=== PATIENT | female | born 1980 | race Caucasian/White ===

== ENCOUNTER 2017-07-22 08:20 | Observation (INO) | payer BC, OTHER ==
[~2017-07-22] VITALS: Ht 167.6 cm; Wt 85.5 kg
[2017-07-22] VITALS (7 sets, daily range): BP systolic 94–109; BP diastolic 59–69; PULSE 86–118; TEMP 36.4–36.9; O2SAT 96–100; Ht 167.6 cm; Wt 85.5 kg
[2017-07-22] MEDS ORDERED: MoRPHine SULFATE 10 MG/ML CARP/VIAL IV STA (08:35)
[2017-07-22] MEDS ORDERED: ONDANSETRON INJ 2 MG/ML 2 ML VIAL IV STA (08:35)
[2017-07-22] MEDS ORDERED: SODIUM CHLORIDE 0.9% 1000ML 1,000 ML IV STA ×2 (08:35→09:23)
[2017-07-22] MEDS ORDERED: OPTIRAY 320 IV PRN (08:45)
--- NOTE | 2017-07-22 08:56 | EMERGENCY ROOM VISIT NOTE ---
History First contact with patient: 08:27 Chief Complaint: ABDOMINAL PAIN Stated Complaint: STOMACH PAIN Nursing Triage Summary: Pt states her son woke her up in the middle of the night coughing and she got up to get him some medicine. When she laid back down she got "awful pains" in her stomach. States pain is in lower abd and comes up her sides. Hurts to touch and when she moves. Vomited this AM. Pt pale. Has appendix. Denies urinary symptoms or kidney stone history. History of Present Illness The patient is a 37 year old female who presents to the Emergency Room with complaints of abdominal pain that started suddenly at 3 AM this morning. She states that her pain started in her lower abdomen and has moved to the right side, is constant, worse with movement and lying down, better with sitting up, 8 /10. She did not take any medications for the pain. She has had associated nausea, vomiting, and diarrhea. She states she has vomited at least 10 times. She denies any blood in her vomit or stool. She has had some chills but does not believe she has had any fevers. She denies any recent antibiotics, the country travel, or unusual food or drink. She denies any headaches, neck pain, chest pain, shortness of breath, dizziness or syncope, back pain, dysuria or urinary frequency, hematuria, vaginal discharge or abnormal bleeding. Her last menstrual period was one month ago, and she states that she had tubal ligation 9 years ago after her last child was born. Review of Systems A complete 10 point review of systems was reviewed with the patient with pertinent positives and negatives as per history of present illness. All else were negative. Past Medical/Surgical History Medical Problems: (1) Hemoperitoneum (2) Ruptured right tubal ectopic causing hemoperitoneum Social History Smoking Status: Former Smoker Current/Historical Medications Scheduled Ibuprofen (Ibuprofen), 1 TAB PO Q6 Scheduled PRN Oxycodone/Acetaminophen 5MG/325MG (Percocet 5MG/325MG), 1 TABLET PO Q4H PRN for Pain Allergies Coded Allergies: No Known Allergies (Unverified , 07/22/17) Physical Exam Vital Signs Date Time Temp Pulse Resp B/P (MAP) Pulse Ox O2 Delivery O2 Flow Rate FiO2 07/22/17 13:20 98 20 109/87 98 Oxymask 8 07/22/17 13:10 90 14 116/75 98 Oxymask 8 07/22/17 13:03 36.5 99 16 122/83 97 Oxymask 8 07/22/17 10:22 133 20 111/73 97 Room Air 07/22/17 09:15 109 12 104/67 98 Room Air 07/22/17 09:07 100 07/22/17 08:22 36.3 130 18 117/79 98 Room Air Physical Exam CONSTITUTIONAL: No acute distress, but appears uncomfortable and in pain. Moderately dehydrated. Alert and oriented X 4 with normal affect. Tearful on exam. HEENT: Normocephalic, atraumatic. Pupils equal, round and reactive to light, EOMI. TMs normal. Pharynx normal. Dry mucous membranes. NECK: Supple, full active range of motion without discomfort. No cervical adenopathy. RESPIRATORY: Clear to auscultation bilaterally with no wheezing, crackles, rhonchi or stridor. Equal expansion bilaterally. CARDIOVASCULAR: Tachycardic. Regular rate and rhythm with no murmurs, rubs or gallops. Normal peripheral perfusion. No edema. GASTROINTESTINAL: Diffuse moderate tenderness throughout, most tender in the right lower quadrant with positive McBurney's tenderness. Positive Rovsing. Positive rebound and guarding on the right. Abdomen is soft and mildly distended. No palpable masses or HSM. Hypoactive bowel sounds present in all quadrants. MUSCULOSKELETAL: Full range of motion of all joints without discomfort. INTEGUMENTARY: No rash or other significant dermatologic conditions noted. NEUROLOGIC: Cranial nerves II-XII grossly intact. No focal neurologic deficits noted. Medical Decision & Procedures ER Provider Diagnostic Interpretation: ECTOPIC HISTORY: 37 years-old Female eval ectopic acute generalized pelvic pain with . History of prior tubal ligation. COMPARISON: None available TECHNIQUE: Multiple real-time sonographic images of the deep pelvic structures were obtained transabdominally and transvaginally assessing grayscale appearance, color and spectral flow FINDINGS: TRANSABDOMINAL: Anteflexed uterus measures 9.3 x 4.8 x 5.8 cm. Endometrium measures 1.1 cm. Right ovary measures 2.6 x 2.3 x 2.9 cm and demonstrates internal follicles with arterial inflow. Left ovary measures 1.8 x 1.7 x 1.7 cm with follicles and arterial inflow also noted. On image 32 of 76 image transabdominal images there is a complex collection adjacent to the right ovary which appears to extend towards left ovary measuring up to 7.5 x 5.3 cm. TRANSVAGINAL: Trace fluid within the endocervical canal. Nabothian cysts are present. Moderate complex free pelvic fluid. There is a complex right adnexal collection measuring up to 7.8 x 2.8 x 5.4 cm which extends over the fundal uterus. No extrauterine gestational sac identified. Study is limited secondary to patient condition. Directional Driller reports that the patient's nurse was there during the study and no more images were able to be obtained secondary to patient pain and condition. IMPRESSION: 1. Heterogeneous mixed echogenicity collection of the right adnexum extending over the fundal uterus measuring up to 7.8 cm suggests hemorrhage with associated moderate amount of complex free pelvic fluid, possibly secondary to ruptured ectopic gestation in the setting of positive qualitative beta hCG. CNC TECHNICIAN consultation recommended. 2. Mild fluid of the endocervical canal without definite intrauterine or extra uterine gestation identified. 3. No evidence of ovarian torsion. Laboratory Results 07/22/17 08:45 Test 07/22/17 08:45 07/22/17 08:51 07/22/17 09:05 Est Creatinine Clear Calc Drug Dose 96.1 ml/min Estimated GFR () 96.0 Estimated GFR (Non- 82.8 BUN/Creatinine Ratio 13.9 (10-20) Lactic Acid Level 2.1 mmol/L (0.4-2.0) Calcium Level 9.0 mg/dl (8.5-10.1) Total Bilirubin 0.4 mg/dl (0.2-1) Direct Bilirubin < 0.1 mg/dl (0-0.2) Aspartate Amino Transf (AST/SGOT) 11 U/L (15-37) Alanine Aminotransferase (ALT/SGPT) 17 U/L (12-78) Alkaline Phosphatase 78 U/L (45-117) Total Protein 7.4 gm/dl (6.4-8.2) Albumin 3.8 gm/dl (3.4-5.0) Lipase 93 U/L (73-393) Bedside Hemoglobin 11.9 g/dl (12.0-16.0) Bedside Hematocrit 35 % (37-47) Bedside Sodium 139 mEq/L (135-144) Bedside Potassium 3.9 mEq/L (3.3-5.0) Bedside Chloride 103 mEq/L (101-112) Bedside Total CO2 22 mEq/l (24-31) Anion Gap 19.0 mmol/L (16-25) Bedside Blood Urea Nitrogen 12 mg/dl (7-18) Bedside Creatinine 0.8 mg/dl (0.6-1.3) Bedside Glucose (other) 167 mg/dl (70-99) Bedside Ionized Calcium (Kulwant) 1.19 mmol/l (1.12-1.32) Urine Color YELLOW Urine Appearance TURBID (CLEAR) Urine pH 5.0 (4.5-7.5) Urine Specific [place] >= 1.030 (1.000-1.030) Urine Protein TRACE (NEG) Urine Glucose (UA) NEG (NEG) Urine Ketones 2+ (NEG) Urine Occult Blood NEG (NEG) Urine Nitrite NEG (NEG) Urine Bilirubin NEG (NEG) Urine Urobilinogen NEG (NEG) Urine Leukocyte Esterase NEG (NEG) Urine RBC 0-4 /hpf (0-4) Urine WBC 0 /hpf (0-5) Urine Epithelial Cells >30 /lpf (0-5) Urine Amorphous Sediment PRESENT (NONE PRSENT) Urine Bacteria NEG (NEG) Urine Test POS (NEG) 07/22/17 08:45 Test 07/22/17 08:45 07/22/17 08:51 07/22/17 09:05 Est Creatinine Clear Calc Drug Dose 96.1 ml/min Estimated GFR () 96.0 Estimated GFR (Non- 82.8 BUN/Creatinine Ratio 13.9 (10-20) Lactic Acid Level 2.1 mmol/L (0.4-2.0) Calcium Level 9.0 mg/dl (8.5-10.1) Total Bilirubin 0.4 mg/dl (0.2-1) Direct Bilirubin < 0.1 mg/dl (0-0.2) Aspartate Amino Transf (AST/SGOT) 11 U/L (15-37) Alanine Aminotransferase (ALT/SGPT) 17 U/L (12-78) Alkaline Phosphatase 78 U/L (45-117) Total Protein 7.4 gm/dl (6.4-8.2) Albumin 3.8 gm/dl (3.4-5.0) Lipase 93 U/L (73-393) Bedside Hemoglobin 11.9 g/dl (12.0-16.0) Bedside Hematocrit 35 % (37-47) Bedside Sodium 139 mEq/L (135-144) Bedside Potassium 3.9 mEq/L (3.3-5.0) Bedside Chloride 103 mEq/L (101-112) Bedside Total CO2 22 mEq/l (24-31) Anion Gap 19.0 mmol/L (16-25) Bedside Blood Urea Nitrogen 12 mg/dl (7-18) Bedside Creatinine 0.8 mg/dl (0.6-1.3) Bedside Glucose (other) 167 mg/dl (70-99) Bedside Ionized Calcium (Kulwant) 1.19 mmol/l (1.12-1.32) Urine Color YELLOW Urine Appearance TURBID (CLEAR) Urine pH 5.0 (4.5-7.5) Urine Specific [place] >= 1.030 (1.000-1.030) Urine Protein TRACE (NEG) Urine Glucose (UA) NEG (NEG) Urine Ketones 2+ (NEG) Urine Occult Blood NEG (NEG) Urine Nitrite NEG (NEG) Urine Bilirubin NEG (NEG) Urine Urobilinogen NEG (NEG) Urine Leukocyte Esterase NEG (NEG) Urine RBC 0-4 /hpf (0-4) Urine WBC 0 /hpf (0-5) Urine Epithelial Cells >30 /lpf (0-5) Urine Amorphous Sediment PRESENT (NONE PRSENT) Urine Bacteria NEG (NEG) Urine Test POS (NEG) Last 24 Hours Test 07/22/17 08:45 Blood Urea Nitrogen 12 mg/dl (7-18) Creatinine 0.90 mg/dl (0.60-1.20) White Blood Count 17.90 K/uL (4.8-10.8) Red Blood Count 4.13 M/uL (4.2-5.4) Hemoglobin 12.0 g/dL (12.0-16.0) Hematocrit 36.2 % (37-47) Mean Corpuscular Volume 87.7 fL (80-100) Mean Corpuscular Hemoglobin 29.1 pg (25-34) Mean Corpuscular Hemoglobin Concent 33.1 g/dl (32-36) Platelet Count 247 K/uL (130-400) Mean Platelet Volume 11.6 fL (7.4-10.4) Neutrophils (%) (Auto) 88.0 % Lymphocytes (%) (Auto) 8.5 % Monocytes (%) (Auto) 2.8 % Eosinophils (%) (Auto) 0.1 % Basophils (%) (Auto) 0.2 % Neutrophils # (Auto) 15.76 K/uL (1.4-6.5) Lymphocytes # (Auto) 1.52 K/uL (1.2-3.4) Monocytes # (Auto) 0.50 K/uL (0.11-0.59) Eosinophils # (Auto) 0.01 K/uL (0-0.5) Basophils # (Auto) 0.04 K/uL (0-0.2) Last 72 Hours Test 07/22/17 08:45 Alanine Aminotransferase (ALT/SGPT) 17 U/L Aspartate Amino Transf (AST/SGOT) 11 U/L Direct Bilirubin < 0.1 mg/dl White Blood Count 17.90 K/uL Red Blood Count 4.13 M/uL Hemoglobin 12.0 g/dL Hematocrit 36.2 % Mean Corpuscular Volume 87.7 fL Mean Corpuscular Hemoglobin 29.1 pg Mean Corpuscular Hemoglobin Concent 33.1 g/dl Platelet Count 247 K/uL Mean Platelet Volume 11.6 fL Neutrophils (%) (Auto) 88.0 % Lymphocytes (%) (Auto) 8.5 % Monocytes (%) (Auto) 2.8 % Eosinophils (%) (Auto) 0.1 % Basophils (%) (Auto) 0.2 % Neutrophils # (Auto) 15.76 K/uL Lymphocytes # (Auto) 1.52 K/uL Monocytes # (Auto) 0.50 K/uL Eosinophils # (Auto) 0.01 K/uL Basophils # (Auto) 0.04 K/uL Total Bilirubin 0.4 mg/dl Medications Administered Medications (Trade) Dose Ordered Sig/Becky Route Start Time Stop Time Status Last Admin Dose Admin Sodium Chloride 1,000 ml @ 999 mls/hr Q1H1M STAT IV 07/22/17 08:35 07/22/17 09:35 DC 07/22/17 09:04 999 MLS/HR Ondansetron HCl (Zofran Inj) 4 mg NOW STAT IV 07/22/17 08:35 07/22/17 08:37 DC 07/22/17 09:04 4 MG Morphine Sulfate (MoRPHine SULFATE INJ) 2 mg STK-MED ONCE .ROUTE 07/22/17 08:58 07/22/17 08:59 DC 07/22/17 09:04 2 MG Morphine Sulfate (MoRPHine SULFATE INJ) 4 mg STK-MED ONCE .ROUTE 07/22/17 08:58 07/22/17 08:59 DC 07/22/17 09:05 4 MG Sodium Chloride 1,000 ml @ 999 mls/hr Q1H1M STAT IV 07/22/17 09:23 07/22/17 10:23 DC 07/22/17 09:27 999 MLS/HR Morphine Sulfate (MoRPHine SULFATE INJ) 4 mg Q1H PRN IV 07/22/17 09:45 07/22/17 17:10 DC 07/22/17 10:23 4 MG Bupivacaine HCl (Marcaine 0.5% MPF Inj) 30 ml STK-MED ONCE .ROUTE 07/22/17 10:52 07/22/17 10:53 DC 07/22/17 12:54 12 ML Silver Nitrate/ Potassium Nitrate (Silver Nitrate Applicators) 4 appl STK-MED ONCE .ROUTE 07/22/17 12:52 07/22/17 12:53 DC 07/22/17 12:54 2 APPL Medical Decision CC: Patient presenting with complaint of abdominal pain, vomiting, diarrhea Interpretation of Labs: Leukocytosis with left shift, no significant anemia, no significant loculated abnormalities, normal renal function, normal liver enzymes. Elevated lactic acid. UA negative for infection. Urine is POSITIVE. Differential Diagnosis: Includes, but not limited to appendicitis, ureteral stone, UTI, pyelonephritis, gastroenteritis, gastritis, infectious colitis, cholecystitis, cholelithiasis, pancreatitis, ectopic , bowel perforation, small bowel obstruction, among others. Medication Reconciliation: I attest that I have personally reviewed the patient' s current medication list. Vital signs review: I reviewed the patient's vital signs and interpret them as follows: T: Afebrile; BP: Normotensive; HR: Tachycardic; RR: Within normal limits; Pulse Ox: Within normal limits. Blood pressure screening: The patient was found to have normal blood pressure on screening and does not require follow-up for repeat blood pressure check. Summary: Patient was evaluated at bedside, history and physical exam performed. Patient is alert and oriented, no acute distress, but appears very uncomfortable and in pain, tearful on exam. The abdomen is tender diffusely, most tender in the lower quadrants and point tender over the right lower quadrant. Positive McBurney's. Positive Rovsing. Positive rebound tenderness throughout the entire abdomen. Patient appears moderately dehydrated and is tachycardic in the 130s. She is afebrile. Orders were placed at bedside for labs, UA and urine , IV fluids for hydration, IV morphine and Zofran for pain and nausea, CT abdomen/pelvis with IV contrast to evaluate for appendicitis and other intra-abdominal etiology. Patient discussed with Dr. Wilkins, who agrees with my assessment and plan. Labs reviewed as above, notable for leukocytosis and elevated lactic acid. Nursing staff called to notify me the patient's test is POSITIVE. Patient was reassessed, she is still in significant pain. Bedside ultrasound was performed, no discernible intrauterine . FAST exam performed, questionable free fluid in the pelvis and left upper quadrant. CT scan was canceled, pelvic ultrasound ordered to evaluate for ectopic . I did evaluate the patient during her formal ultrasound, images concerning for a possible ruptured ectopic by my evaluation. I called and spoke with Dr. Verma, OB, due to concerns for ruptured ectopic . She agreed to evaluate the patient and recommended notifying the OR for possible urgent surgery. This was done. Patient reassessed multiple times throughout ED stay, she remains in significant pain though this is somewhat improved with morphine. She continues to be tachycardic, but she has not been hypotensive. She is not significantly anemic on blood work. Awaiting beta Quant. Dr. Verma at bedside to evaluate the patient, she is taking her directly to the OR. Patient was stable at this time. Impression Primary Impression: Ruptured ectopic Departure Information Dispostion Being Evaluated By Surgeon Condition FAIR Prescriptions Ibuprofen (Ibuprofen) 600 Mg Tab 1 TAB PO Q6 for Pain, #30 TAB Prov: Dolores Verma M.D. 07/23/17 Oxycodone/Acetaminophen 5MG/325MG (PERCOCET 5MG/325MG) Tab 1 TABLET PO Q4H Y for Pain, #20 TAB Prov: Dolores Verma M.D. 07/23/17 Referrals No Doctor, Assigned (PCP) Forms Call Back Authorization, HOME CARE DOCUMENTATION FORM, IMPORTANT VISIT INFORMATION Patient Instructions My [facility]
[2017-07-22] MEDS ORDERED: MoRPHine SULFATE 2 MG/ML CARP ONE (08:58)
[2017-07-22] MEDS ORDERED: MoRPHine SULFATE 4 MG/ML 1 ML CARP\\VIAL ONE (08:58)
[2017-07-22 09:03] LABS: BASO % 0.2 %; BASO ABS # 0.04 K/uL (0-0.2); COMPLETE YES; EOS % 0.1 %; HEMATOCRIT 36.2 % (37-47); IG% 0.4 %; LYMPH % 8.5 %; LYMPH ABS # 1.52 K/uL (1.2-3.4); MEAN CELL VOLUME 87.7 fL (80-100); MEAN CORPUSCULAR HEMOGLOBIN 29.1 pg (25-34); MEAN CORPUSCULAR HGB CONC 33.1 g/dl (32-36); MEAN PLATELET VOLUME 11.6 fL (7.4-10.4); MONO % 2.8 %; PLATELET COUNT 247 K/uL (130-400); RED BLOOD COUNT 4.13 M/uL (4.2-5.4)
[2017-07-22 09:04] LABS: ISTAT CREATININE 0.8 mg/dl (0.6-1.3); ISTAT HEMOGLOBIN 11.9 g/dl (12.0-16.0); ISTAT IONIZED CALCIUM 1.19 mmol/l (1.12-1.32)
[2017-07-22 09:24] LABS: ALT/SGPT 17 U/L (12-78); BLOOD UREA NITROGEN 12 mg/dl (7-18); BUN/CREATININE RATIO 13.9 (10-20); CARBON DIOXIDE 23 mmol/L (21-32); CHLORIDE 106 mmol/L (98-107); GLUCOSE 158 mg/dl (70-99); POTASSIUM 3.9 mmol/L (3.5-5.1); SODIUM 137 mmol/L (136-145)
[2017-07-22 09:29] LABS: ALKALINE PHOSPHATASE 78 U/L (45-117); AST/SGOT 11 U/L (15-37)
[2017-07-22 09:37] LABS: MANUAL MICROSCOPIC REQUIRED? YES; REVIEW REQ? NO; URINE APPEARANCE TURBID (CLEAR); URINE BILIRUBIN NEG (NEG); URINE COLOR YELLOW; URINE NITRITE NEG (NEG); URINE RBC 0-4 /hpf (0-4); URINE SPECIFIC GRAVITY >= 1.030 (1.000-1.030); UROBILINOGEN NEG (NEG)
[2017-07-22 09:38] LABS: URINE WBC 0 /hpf (0-5)
[2017-07-22 09:39] LABS: URINE AMORPHOUS SEDIMENT PRESENT (NONE PRSENT); URINE BACTERIA NEG (NEG)
[2017-07-22] MEDS ORDERED: MoRPHine SULFATE 4 MG/ML 1 ML CARP\\VIAL IV PRN (09:45)
--- NOTE | 2017-07-22 10:41 | DIAGNOSTIC IMAGING REPORT ---
ECTOPIC HISTORY: 37 years-old Female eval ectopic acute generalized pelvic pain with . History of prior tubal ligation. COMPARISON: None available TECHNIQUE: Multiple real-time sonographic images of the deep pelvic structures were obtained transabdominally and transvaginally assessing grayscale appearance, color and spectral flow FINDINGS: TRANSABDOMINAL: Anteflexed uterus measures 9.3 x 4.8 x 5.8 cm. Endometrium measures 1.1 cm. Right ovary measures 2.6 x 2.3 x 2.9 cm and demonstrates internal follicles with arterial inflow. Left ovary measures 1.8 x 1.7 x 1.7 cm with follicles and arterial inflow also noted. On image 32 of 76 image transabdominal images there is a complex collection adjacent to the right ovary which appears to extend towards left ovary measuring up to 7.5 x 5.3 cm. TRANSVAGINAL: Trace fluid within the endocervical canal. Nabothian cysts are present. Moderate complex free pelvic fluid. There is a complex right adnexal collection measuring up to 7.8 x 2.8 x 5.4 cm which extends over the fundal uterus. No extrauterine gestational sac identified. Study is limited secondary to patient condition. Plaster Mixer reports that the patient's nurse was there during the study and no more images were able to be obtained secondary to patient pain and condition. IMPRESSION: 1. Heterogeneous mixed echogenicity collection of the right adnexum extending over the fundal uterus measuring up to 7.8 cm suggests hemorrhage with associated moderate amount of complex free pelvic fluid, possibly secondary to ruptured ectopic gestation in the setting of positive qualitative beta hCG. ELEVATOR MECHANIC APPRENTICE consultation recommended. 2. Mild fluid of the endocervical canal without definite intrauterine or extra uterine gestation identified. 3. No evidence of ovarian torsion. The above report was generated using voice recognition software. It may contain grammatical, syntax or spelling errors. Electronically signed by: Kevin Webb M.D. 07/22/2017 10:40 AM Dictated Date/Time: 07/22/2017 10:30 AM
[2017-07-22] MEDS ORDERED: LIDOCAINE HCL 2% 2 ML VIAL (20MG/ML) ONE (10:44)
[2017-07-22] MEDS ORDERED: NEOSTIGMINE METHYLSULFATE 5 MG/5 ML SYR ONE (10:44)
[2017-07-22] MEDS ORDERED: MIDAZOLAM HCL 1 MG/ML 2ML VIAL ONE (10:44)
[2017-07-22] MEDS ORDERED: GLYCOPYRROLATE INJ 0.2 MG/ML VIAL ONE ×2 (10:44→12:39)
[2017-07-22] MEDS ORDERED: ONDANSETRON INJ 2 MG/ML 2 ML VIAL ONE ×2 (10:44→12:39)
[2017-07-22] MEDS ORDERED: FENTANYL CITRATE INJ 50 MCG/1 ML 2 ML VIAL ONE ×2 (10:44→12:39)
[2017-07-22] MEDS ORDERED: PROPOFOL IV EMULSION 10 MG/ML 20 ML VIAL IV ONE (10:44)
[2017-07-22] MEDS ORDERED: DEXAMETHASONE SOD INJ 4 MG/ML VIAL ONE (10:44)
[2017-07-22] MEDS ORDERED: BUPIVACAINE 0.5 % 5 MG/1 ML MPF 30ML VIAL ONE (10:52)
--- NOTE | 2017-07-22 11:02 | History and Physical ---
History & Physical Date Jul 22, 2017. Chief Complaint acute abdominal pain History of Present Illness The patient is a 37 year old female with LPSC tubal after her last child 9 years ago. Was in her usual state of health and had sudden onset of abdominal pain last night, excrutiating, constant, could not stand up straight. Had to stay in bed wrapped in a ball. Notes associated with feeling hot, n/v , diarrhea. Presented to the ED and eval by PA. +UPT. quant still pending. Very tender abdomen, tachycardia. Could not tolerate US well as having so much pain. Patient notes she gets regular typesetters printer care in [place]. Just had annual exam last month and all well. Has normal regular periods every 28-30 days. LMP 06/20 and per patient report was normal. No hx of stds. All deliveries were vaginal. Hx of one termination. Hx of cervical dysplasia. No other pertinent typesetters printer hx. Past Medical/Surgical History Patient denies significant medical hx. psxhx--lpsc tl, oral Additional History Hepatic Disease: No Endocrine Disorder: No Kidney Disease: No Hypertension: No Heart Disease: No Bleeding Tendencies: No Infectious Diseases: No LMP: 06/20/17 Allergies Coded Allergies: No Known Allergies (Unverified , 07/22/17) Home Medications No Active Prescriptions or Reported Meds Physical Examination Skin: warm/dry Respiratory/Chest: lungs clear Cardiovascular: regular rate, rhythm Abdomen / GI: + pertinent finding (abdomen appears slightly distended, tender to generalized palpation with guarding and probable rebound) Extremities: normal inspection Addiitonal Comments: h/h US--uterus nl, lining 1.1, no sac, left ov nl, r ov nl, complex mass/fluid collection measuring 7.5x5.3 cm adjacent to the right ovary, moderate complex fluid in culdesac. Diagnosis Probable ruptured ectopic Plan of Treatment Given the situation of TL and + test (quant pending), plan to take to the or for dx lpsc, possible right salpingectomy or possibly right salpingoophrectomy. Risks of surgery discussed with the patient including bleeding, transfusion, infection, damage to surrounding structures with need for further surgery or hospitalization, open procedure, heart attack , blood clot, stoke ,. Consent reviewed and signed and questions answered. Plan to proceed urgently to the OR.
[2017-07-22] MEDS ORDERED: ATROPINE SULFATE 0.1 MG/ML 5ML SYR IV PRN (11:15)
[2017-07-22] MEDS ORDERED: PHENYLEPHRINE 100MCG/ML 5ML SYR IV PRN (11:15)
[2017-07-22] MEDS ORDERED: EpHEDrine SULFATE INJ 50 MG/ML AMP IV PRN (11:15)
[2017-07-22] MEDS ORDERED: ONDANSETRON INJ 2 MG/ML 2 ML VIAL IV PRN ×2 (11:15→13:30)
[2017-07-22] MEDS ORDERED: HYDROmorphone INJ 2 MG/ML SYR/VIAL IV PRN (11:15)
[2017-07-22] MEDS ORDERED: KETOROLAC TROMETHAMINE 30 MG/ML VIAL ONE (12:38)
[2017-07-22] MEDS ORDERED: ROCURONIUM BROMIDE 10 MG/ML 5 ML VIAL IV ONE (12:39)
[2017-07-22] MEDS ORDERED: SUCCINYLCHOLINE CHLORIDE 20 MG/ML 10 ML VIAL IV ONE (12:44)
[2017-07-22] MEDS ORDERED: SILVER NITR/POTASSIUM NITRATE APPLICATOR ONE (12:52)
--- NOTE | 2017-07-22 13:28 | [facility] Post Operative Brief Note ---
Immediate Operative Summary Operative Date Jul 22, 2017. Pre-Operative Diagnosis suspected right fallopian tube ruptured ectopic Post-Operative Diagnosis Same as preop Procedure(s) Performed Diagnostic Laparoscopy Bilateral Salpigectomy Surgeon Dr. Verma Education Administrative Assistant Surgeon(s) MS [id number] Estimated Blood Loss 0 ml for case but hemoperitoneum in abdomen was approximatly 900 ml Findings nl uterus, nl tubes, large amount of blood and clot in the abdomen. left tube appears normal. no obvious area of interruption. Ectopic with rupture in the initial portion of the FT. Appendix visualized and normal. Fluids (cc crystalloids) 2500cc Specimens A. Right Fallopain Tube Ectopic B. Left Fallopian Tube Drains none Anesthesia gett Complication(s) None Disposition Recovery Room / PACU
[2017-07-22] MEDS ORDERED: ZOLPIDEM TARTRATE 5 MG TAB PO PRN (13:30)
[2017-07-22] MEDS ORDERED: ACETAMINOPHEN 325 MG TAB PO PRN (13:30)
[2017-07-22] MEDS ORDERED: LORAZEPAM 0.5 MG TAB PO PRN (13:30)
[2017-07-22] MEDS ORDERED: KETOROLAC TROMETHAMINE 30 MG/ML VIAL IV PRN (13:30)
[2017-07-22] MEDS ORDERED: MEPERIDINE HCL 50 MG/ML CARP IM PRN (13:30)
--- NOTE | 2017-07-22 13:33 | Anesthesiology Progress Note ---
Anesthesia Post Op Note Date & Time Jul 22, 2017 at 13:32 Vital Signs Pain Intensity: 3 Vital Signs Past 12 Hours Date Time Temp Pulse Resp B/P (MAP) Pulse Ox O2 Delivery O2 Flow Rate FiO2 07/22/17 13:30 95 18 103/56 93 Room Air 07/22/17 13:20 98 20 109/87 98 Oxymask 8 07/22/17 13:10 90 14 116/75 98 Oxymask 8 07/22/17 13:03 36.5 99 16 122/83 97 Oxymask 8 07/22/17 10:22 133 20 111/73 97 Room Air 07/22/17 09:15 109 12 104/67 98 Room Air 07/22/17 09:07 100 07/22/17 08:22 36.3 130 18 117/79 98 Room Air Notes Mental Status: alert / awake / arousable, participated in evaluation Pt Amnestic to Procedure: Yes Nausea / Vomiting: adequately controlled Pain: adequately controlled Airway Patency, RR, SpO2: stable & adequate BP & HR: stable & adequate Hydration State: stable & adequate Anesthetic Complications: no major complications apparent
[2017-07-22] MEDS ORDERED: IV FLUIDS COMPLETED PRN (14:00)
[2017-07-22 14:10] LABS: HEMATOCRIT 27.5 % (37-47)
[2017-07-22] MEDS ORDERED: LACTATED RINGER'S 1000ML 1,000 ML IV SCH (15:00)
[2017-07-22] MEDS ORDERED: IBUPROFEN 600 MG TAB PO PRN (17:00)
[2017-07-22] MEDS ORDERED: OXYCODONE/ACETAMINOPHEN 5-325 TAB PO PRN (17:00)
[2017-07-22] MEDS ORDERED: MEPERIDINE HCL 50 MG/ML CARP IV PRN (17:00)
--- NOTE | 2017-07-22 19:32 | OPERATIVE REPORT ---
DATE OF OPERATION: 07/22/2017 PREOPERATIVE DIAGNOSES: Suspected right ectopic and hemoperitoneum. POSTOPERATIVE DIAGNOSIS: Ruptured right ectopic with hemoperitoneum. PROCEDURE: Diagnostic laparotomy with bilateral salpingectomy. SURGEON: Dolores Verma MD. TROUBLE DISPATCHER: MARGY Graff. ANESTHESIA: General per endotracheal tube. ESTIMATED BLOOD LOSS: No real loss of blood for the procedure but there was at least 900 mL of hemoperitoneum drained from the abdomen. FLUIDS: 2500 mL URINE OUTPUT: 175 mL of very cloudy yellow urine drained from the bladder at the end of the procedure. INDICATIONS: The patient is a 37-year-old white female, 6, para 4-0-1-4, who had a tubal ligation after the delivery of her fourth child, sounded laparoscopic. The patient presented to the Emergency Department with acute onset of pain at 3:00 a.m. She was found to have a positive test. Her quant was 2800 and ultrasound showed a 7.5 x 5.3 complex mass and complex fluid within the pelvis. FINDINGS: Uterus and ovaries normal bilaterally. Left tube was normal appearing. There was not an obvious area of evidence of interruption of the tube. Right tube showed an ectopic just into the beginning of the tube, it was ruptured, there was clot in the area. Again, no obvious area of tubal interruption but questionable interruption right just lateral to both of the cornua. Appendix was visualized and was normal. There was approximately 900 mL of hemoperitoneum. COMPLICATIONS: None. DRAINS: None. DISPOSITION: To recovery room in stable condition. DESCRIPTION OF PROCEDURE: The patient was taken to the operating room where she was identified verbally and by bracelet. She was placed in dorsal supine position where general anesthesia was induced without difficulty. She was then placed in dorsal lithotomy position in [facility]. Her arms were carefully tucked and draped at her side. Her chest was protected and restrained. She was prepped and draped in normal sterile fashion. Timeout was held identifying correct patient, procedure and positioning. No preoperative antibiotics were required. Attention was turned to the perineum where a Waters catheter was placed. A speculum was placed. The anterior lip of the cervix was grasped with a single tooth tenaculum. A [email or web address] uterine manipulator was placed into the cervix to serve as means of manipulation and the speculum was removed. Attention was then turned to the abdomen where an infraumbilical incision was made with a knife. Veress needle placed through this x3 with opening pressure of 8 mmHg. Because I was not sure if we were preperitoneal, I converted to open laparoscopic procedure. The infraumbilical incision was increased with the knife. The fascia was grasped bilaterally and entered with scissors. It was sutured with 0 Vicryl. The peritoneum was then identified and entered sharply with scissors. I had gotten some air into the abdomen. A Julienne trocar was then placed into the abdomen and the camera was placed through this, immediate hemoperitoneum was noted. As much of this as could be removed with suction was done after a 5 mm trocar was placed in the left lower quadrant under direct visualization. The patient was then placed into Trendelenburg position and a ruptured ectopic was noted in the right tube, just lateral to the cornua of the uterus. I decided to remove this entire tube. There was no obvious evidence of tubal interruption; however, there was a divoting just beyond the ectopic , between the uterus and the ectopic that could have potentially been a separation. The left tube looked very similar. No obvious evidence of tubal interruption but a little notching just lateral to the cornual section of the tube. Because the patient obviously desired no further children, as she had had a previous ectopic , I decided it was in the patient's best interest, since I could not obviously see tubal interruption, to remove the left tube as well. So a 10 mm trocar was placed under direct visualization in the right lower quadrant and this was used with a large 10 mm suction device to remove as much clot as we could. Attention was then turned to the right tube where it was grasped with a blunt probe, and using the Harmonic scalpel, it was removed in its entirety. I do believe I did obtain and remove all of the ectopic . This tubal segment was placed into a laparoscopic bag and was pulled through the 10 mm trocar site. Then, in a similar fashion, the tube was removed using the Harmonic scalpel on the left, this tube was removed directly through the 10 mm trocar site. Both tubes were sent to pathology and sent separately. I used bipolar Kleppinger cautery to cauterize the area on the right tubal stump/uterus to assure hemostasis. Then, as much of the clot was removed by suction from the abdomen as possible and the procedure was thus terminated. Gas was released from the abdomen. The trocars were removed. The fascia of the infraumbilical site was reapproximated with 0 Vicryl. All incisions were closed with 4-0 Vicryl. The incisions were infiltrated with 0.5% Marcaine. Instruments were removed from the vagina. Some oozing at the area of the tenaculum site was attended to with silver nitrate. All sponge, lap and needle counts were correct x2. The patient tolerated the procedure well and was taken to the recovery room in stable condition where stat H&H will be drawn. I attest to the content of the Intraoperative Record and any orders documented therein. Any exception s are noted below.
[2017-07-22 20:55] LABS: HEMATOCRIT 24.1 % (37-47)
[2017-07-23 03:20] VITALS: BP 99/58; PULSE 97; TEMP 36.4; O2SAT 97
[2017-07-23] MEDS ORDERED: OXYC-57 PO (03:22)
[2017-07-23] MEDS ORDERED: MTR600X PO (03:22)
--- NOTE | 2017-07-23 03:24 | Discharge Instructions ---
Discharge Instructions Date of Service Jul 23, 2017. Admission Reason for Admission: Hemoperitoneum, Ruptured R Tubal Ectopic Discharge Discharge Diagnosis / Problem: s/p removal of both tubes for right tubal Discharge Goals Goal(s): Routine recovery after surgery Activity Recommendations Activity Limitations: per Instructions/Follow-up section . Instructions / Follow-Up Instructions / Follow-Up ACTIVITY RECOMMENDATIONS: * Rest the first 2-3 days. You should be back to your normal activity levels by day 7. * No heavy lifting for 2 weeks. * No intercourse, tampons or douching for 1-2 weeks. * You may shower the next day. * Do not drive anytime that you are taking narcotic pain medicines. RETURN TO SCHOOL/WORK: * May return to school or work after 1 week. DIET: Nausea may occur in the immediate post-operative period. If so, take clear liquids such as tea, bouillon, apple juice until all nausea has subsided, then resume usual diet. MEDICATIONS: Resume previous medications unless instructed otherwise by your surgeon. Ibuprofen 200mg 2-3 tablets every 4-6 hours as needed -- OR -- Aleve 2 tablets every 8-12 hours as needed for post-operative discomfort Medications are over the counter. Tylenol may be used if above medications are contraindicated or not preferred. Medication should be taken with food or milk. Do not take on an empty stomach. SPECIAL CARE INSTRUCTIONS: * Check temperature twice daily for one week. report any elevation over 101 degrees. * You may experience some vagina spotting and/or bleeding. This is normal for 1 -2 weeks and should not be heavier than a normal period. If it is unusual in amount, call your physician. * Post-operative discomfort may consist of a sore throat, a "bloated" feeling and pain in the shoulders. these are normal symptoms, which usually only last for 2-3 days. * Remove band-aids tomorrow and shower. There is no need to replace band-aids unless there is drainage or discomfort. FOLLOW UP VISIT: Call your doctor's office for a post-operative 2 week visit if not already scheduled. Return to the lab on Wednesday for blood work. Current Hospital Diet Patient's current hospital diet: Regular Diet Discharge Diet Recommended Diet: Regular Diet Procedures Procedures Performed: Diagnostic Laparoscopy Bilateral Salpigectomy Pending Studies Studies pending at discharge: no Medical Emergencies . Who to Call and When: Medical Emergencies: If at any time you feel your situation is an emergency, please call 911 immediately. . Non-Emergent Contact Non-Emergency issues call your: Spot Remover . . "Provider Documentation" section prepared by Dolores Verma. . VTE Core Measure Inpt VTE Proph given/why not?: Treatment not indicated [place] Drug Monitoring Program Search Results: patient reviewed within database, no issues identified
[2017-07-23 06:52] LABS: HEMATOCRIT 22.2 % (37-47); IG% 0.4 %; LYMPH % 13.2 %; MEAN CELL VOLUME 88.1 fL (80-100); MEAN CORPUSCULAR HGB CONC 32.9 g/dl (32-36); MEAN PLATELET VOLUME 11.4 fL (7.4-10.4); MONO % 6.6 %; NEUT % 79.8 %; PLATELET COUNT 174 K/uL (130-400); RED BLOOD COUNT 2.52 M/uL (4.2-5.4); WHITE BLOOD COUNT 11.34 K/uL (4.8-10.8)
--- NOTE | 2017-07-23 07:00 | OB/GYN Progress Note ---
[employer] Progress Note Date of Service Jul 23, 2017. Subjective conversation w/ patient, physical exam, lab review Ambulation: ambulating normally Voiding: no voiding problems Passing Gas: Yes Diet Tolerance: Regular Diet Pain: controlled with oral pain meds, not really taking. Notes: Patient feeling much better this am. Has ambulated to the BR and castro without discomfort, no dizziness or lightheadedness, no n/v. Objective Vital Signs Date Time Temp Pulse Resp B/P (MAP) Pulse Ox O2 Delivery O2 Flow Rate FiO2 07/23/17 03:20 36.4 97 16 99/58 (72) 97 Room Air 07/22/17 23:15 97 Room Air 07/22/17 23:15 36.9 16 97/61 (73) 97 Room Air 07/22/17 19:30 36.8 108 20 109/64 (79) 97 Room Air 07/22/17 17:30 107 20 106/67 (80) 96 Room Air 07/22/17 16:30 86 20 99/67 (78) 98 Room Air 07/22/17 15:30 86 20 109/66 (80) 100 Room Air 07/22/17 15:00 91 22 108/69 (82) 100 Room Air 07/22/17 14:30 36.4 118 20 94/59 100 Room Air 07/22/17 14:30 100 Room Air 07/22/17 14:05 87 20 94/74 92 Room Air 07/22/17 13:50 84 21 105/77 94 Room Air 07/22/17 13:40 36.3 87 20 123/69 91 Room Air 07/22/17 13:30 95 18 103/56 93 Room Air 07/22/17 13:20 98 20 109/87 98 Oxymask 8 07/22/17 13:10 90 14 116/75 98 Oxymask 8 07/22/17 13:03 36.5 99 16 122/83 97 Oxymask 8 07/22/17 10:22 133 20 111/73 97 Room Air 07/22/17 09:15 109 12 104/67 98 Room Air 07/22/17 09:07 100 07/22/17 08:22 36.3 130 18 117/79 98 Room Air Physical Exam General Appearance: WELL-APPEARING, WD/WN, NO APPARENT DISTRESS Abdomen: non tender, soft, + distended (slight) Incision Description: Clean, Dry & Intact (slight bruising) Extremities: non-tender, normal inspection Laboratory Results Last 24 Hours Test 07/22/17 08:45 07/22/17 08:51 07/22/17 09:05 07/22/17 10:25 White Blood Count 17.90 K/uL Red Blood Count 4.13 M/uL Hemoglobin 12.0 g/dL Hematocrit 36.2 % Mean Corpuscular Volume 87.7 fL Mean Corpuscular Hemoglobin 29.1 pg Mean Corpuscular Hemoglobin Concent 33.1 g/dl Platelet Count 247 K/uL Mean Platelet Volume 11.6 fL Neutrophils (%) (Auto) 88.0 % Lymphocytes (%) (Auto) 8.5 % Monocytes (%) (Auto) 2.8 % Eosinophils (%) (Auto) 0.1 % Basophils (%) (Auto) 0.2 % Neutrophils # (Auto) 15.76 K/uL Lymphocytes # (Auto) 1.52 K/uL Monocytes # (Auto) 0.50 K/uL Eosinophils # (Auto) 0.01 K/uL Basophils # (Auto) 0.04 K/uL RDW Standard Deviation 42.6 fL RDW Coefficient of Variation 13.3 % Immature Granulocyte % (Auto) 0.4 % Immature Granulocyte # (Auto) 0.07 K/uL Sodium Level 137 mmol/L Potassium Level 3.9 mmol/L Chloride Level 106 mmol/L Carbon Dioxide Level 23 mmol/L Anion Gap 8.0 mmol/L 19.0 mmol/L Blood Urea Nitrogen 12 mg/dl Creatinine 0.90 mg/dl Est Creatinine Clear Calc Drug Dose 96.1 ml/min Estimated GFR () 96.0 Estimated GFR (Non- 82.8 BUN/Creatinine Ratio 13.9 Random Glucose 158 mg/dl Lactic Acid Level 2.1 mmol/L Calcium Level 9.0 mg/dl Total Bilirubin 0.4 mg/dl Direct Bilirubin < 0.1 mg/dl Aspartate Amino Transf (AST/SGOT) 11 U/L Alanine Aminotransferase (ALT/SGPT) 17 U/L Alkaline Phosphatase 78 U/L Total Protein 7.4 gm/dl Albumin 3.8 gm/dl Lipase 93 U/L Bedside Hemoglobin 11.9 g/dl Bedside Hematocrit 35 % Bedside Sodium 139 mEq/L Bedside Potassium 3.9 mEq/L Bedside Chloride 103 mEq/L Bedside Total CO2 22 mEq/l Bedside Blood Urea Nitrogen 12 mg/dl Bedside Creatinine 0.8 mg/dl Bedside Glucose (other) 167 mg/dl Bedside Ionized Calcium (Kulwant) 1.19 mmol/l Urine Color YELLOW Urine Appearance TURBID Urine pH 5.0 Urine Specific [place] >= 1.030 Urine Protein TRACE Urine Glucose (UA) NEG Urine Ketones 2+ Urine Occult Blood NEG Urine Nitrite NEG Urine Bilirubin NEG Urine Urobilinogen NEG Urine Leukocyte Esterase NEG Urine RBC 0-4 /hpf Urine WBC 0 /hpf Urine Epithelial Cells >30 /lpf Urine Amorphous Sediment PRESENT Urine Bacteria NEG Urine Test POS Human Chorionic Gonadotropin, Quant 2873 mIU/mL Test 07/22/17 13:58 07/22/17 20:32 07/23/17 06:37 Hemoglobin 9.3 g/dL 8.2 g/dL 7.3 g/dL Hematocrit 27.5 % 24.1 % 22.2 % White Blood Count 11.34 K/uL Red Blood Count 2.52 M/uL Mean Corpuscular Volume 88.1 fL Mean Corpuscular Hemoglobin 29.0 pg Mean Corpuscular Hemoglobin Concent 32.9 g/dl Platelet Count 174 K/uL Mean Platelet Volume 11.4 fL Neutrophils (%) (Auto) 79.8 % Lymphocytes (%) (Auto) 13.2 % Monocytes (%) (Auto) 6.6 % Eosinophils (%) (Auto) 0.0 % Basophils (%) (Auto) 0.0 % Neutrophils # (Auto) 9.05 K/uL Lymphocytes # (Auto) 1.50 K/uL Monocytes # (Auto) 0.75 K/uL Eosinophils # (Auto) 0.00 K/uL Basophils # (Auto) 0.00 K/uL RDW Standard Deviation 44.4 fL RDW Coefficient of Variation 13.8 % Immature Granulocyte % (Auto) 0.4 % Immature Granulocyte # (Auto) 0.04 K/uL Assessment and Plan Post-Op Day Number: 1 Continue Routine Care: PLan d/c home today. Instructions given. To f/u at the lab on Wednesday for quant. Plan to follow quants to 0 as ectopic was very close to the uterine cornu. Explained all findings to the patient. showed pictures. She expressed understanding. Questions asked and answered.
[2017-07-23 07:16] LABS: COMPLETE YES
[2017-07-23 07:25] VITALS: BP 101/56; PULSE 75; TEMP 36.8; O2SAT 98
--- NOTE | 2017-07-23 08:47 | Anesthesiology Progress Note ---
Anesthesia Post Op Note Date & Time Jul 23, 2017 at 08:46 Vital Signs Pain Intensity: 2.0 Vital Signs Past 12 Hours Date Time Temp Pulse Resp B/P (MAP) Pulse Ox O2 Delivery O2 Flow Rate FiO2 07/23/17 07:25 36.8 75 20 101/56 (71) 98 Room Air 07/23/17 07:25 98 Room Air 07/23/17 03:20 36.4 97 16 99/58 (72) 97 Room Air 07/22/17 23:15 97 Room Air 07/22/17 23:15 36.9 16 97/61 (73) 97 Room Air Notes Mental Status: alert / awake / arousable, participated in evaluation Pt Amnestic to Procedure: Yes Nausea / Vomiting: adequately controlled Pain: adequately controlled Airway Patency, RR, SpO2: stable & adequate BP & HR: stable & adequate Hydration State: stable & adequate Anesthetic Complications: no major complications apparent
[2017-07-23 09:01] VITALS: BP 101/56; PULSE 75; TEMP 36.8; O2SAT 98
== END 2017-07-23 09:00 | disposition home or self-care (01) ==
LOC: C.EDB 08:21 → C.MS4N 13:26 → ENRESERV 14:08
PROVIDERS: ADMIT Obstetrics & Gynecology; ATTEND Obstetrics & Gynecology
DX: O00.90 Unspecified ectopic pregnancy without intrauterine pregnancy (principal); K66.1 Hemoperitoneum; J45.909 Unspecified asthma, uncomplicated; E66.9 Obesity, unspecified; Z87.891 Personal history of nicotine dependence

== ENCOUNTER → 2017-07-26 | Outpatient (CLI) | payer BC ==
[~2017-07-26] MED LIST: MTR600X PO; OXYC-57 PO
== END | disposition home or self-care (01) ==
LOC: C.LAB1850 09:13
PROVIDERS: ATTEND Obstetrics & Gynecology
DX: O00.101 Right tubal pregnancy without intrauterine pregnancy (principal)

== ENCOUNTER → 2017-08-02 | Outpatient (CLI) | payer BC | END | disposition home or self-care (01) | LOC: C.LAB1850 09:04 | PROVIDERS: ATTEND Obstetrics & Gynecology | DX: O00.101 Right tubal pregnancy without intrauterine pregnancy (principal) ==

== ENCOUNTER → 2017-08-11 | Outpatient (CLI) | payer BC ==
[2017-08-11 12:06] LABS: HEMATOCRIT 32.6 % (37-47); HEMOGLOBIN 10.6 g/dL (12.0-16.0); MEAN CELL VOLUME 89.3 fL (80-100); MEAN CORPUSCULAR HGB CONC 32.5 g/dl (32-36); MEAN PLATELET VOLUME 11.6 fL (7.4-10.4); PLATELET COUNT 286 K/uL (130-400); RED CELL DISTRIBUTION WIDTH SD 45.8 fL (36.4-46.3); WHITE BLOOD COUNT 4.88 K/uL (4.8-10.8)
== END | disposition home or self-care (01) ==
LOC: C.LAB1850 10:49
PROVIDERS: ATTEND Obstetrics & Gynecology
DX: O00.101 Right tubal pregnancy without intrauterine pregnancy (principal); O08.89 Other complications following an ectopic and molar pregnancy; Z3A.00 Weeks of gestation of pregnancy not specified

== ENCOUNTER → 2017-08-18 | Outpatient (CLI) | payer BC, OTHER | END | disposition home or self-care (01) | LOC: C.LAB1850 10:10 | PROVIDERS: ATTEND Obstetrics & Gynecology | DX: O00.101 Right tubal pregnancy without intrauterine pregnancy (principal) ==